=== PATIENT | female | born 1965 | race Two or more races ===

== ENCOUNTER 2023-05-24 19:44 | Emergency (ER) | payer OTHER ==
[~2023-05-24] VITALS: Ht 165.1 cm; Wt 66.2 kg
== END 2023-05-24 21:52 | disposition home or self-care (01) ==
LOC: ER 19:45
DX: R00.2 Palpitations (principal); K21.9 Gastro-esophageal reflux disease without esophagitis
CPT/HCPCS: 93005; 96365; 99284; J3490